=== PATIENT | male | born 1965 | race Caucasian/White ===

== ENCOUNTER → 2018-02-19 | Outpatient (CLI) | payer OTHER ==
--- NOTE | 2018-02-19 15:16 | PCVCIMAG ---
APPROVED REPORT Study performed: 02/19/2018 13:01:25 EXAM: Comprehensive 2D, Doppler, and color-flow Echocardiogram Patient Location: Echo lab Status: routine BSA: 2.28 HR: 56 bpmBP: 90/60 mmHg Rhythm: NSR Other Information Study Quality: Adequate Indications Atrial Fibrillation Hypertension/HDD Hx of non-ischemic cardiomyopathy. 2D Dimensions RVDd: 31.93 mmLVEF(%): 77.21 (>50%) IVSd: 11.66 (7-11mm)LVOT Diam: 23.11 (18-24mm) LVDd: 35.01 mm PWd: 12.83 (7-11mm)Ascending Ao: 33.41 (22-36mm) LVDs: 19.28 (25-40mm) Left Atrium: 45.66 (27-40mm) LV Single Plane 4CH: 68.66 % LV Single Plane 2CH: 69.62 %Joseph's LVEF: 69.14 % Biplane EF: 69.3 % Volumes Left Atrial Volume (Systole) Single Plane 4CH: 70.34 mLSingle Plane 2CH: 58.45 mL LA ESV Index: 32.00 mL/m2 Aortic Valve AoV Peak Rg.: 1.42 m/s AO Peak Gr.: 8.11 mmHgLVOT Max P.63 mmHg LVOT Max V: 1.29 m/s RJ Vmax: 3.79 cm2 Mitral Valve E/A Ratio: 1.4 MV Decel. Time: 283.42 ms MV E Max Rg.: 0.76 m/s MV A Rg.: 0.53 m/s MV PHT: 82.19 ms TDI E/Lateral E': 4.75E/Medial E': 5.43 Medial E' Rg.: 0.14 m/s Lateral E' Rg.: 0.16 m/s Pulmonary Valve PV Peak Gr.: 4.28 mmHg Tricuspid Valve TR Peak Rg.: 2.31 m/s TR Peak Gr.: 21.33 mmHg Left Ventricle The left ventricle is normal size. There is normal LV segmental wall motion. There is normal left ventricular wall thickness. Left ventricular systolic function is normal. The left ventricular ejection fraction is within the normal range. LVEF is 55-60%. The left ventricular diastolic function is normal. Right Ventricle The right ventricle is normal size. The right ventricular systolic function is normal. Atria Left atrium is borderline dilated. The right atrium size is normal. Aortic Valve The aortic valve is normal in structure. No aortic regurgitation is present. There is no aortic valvular stenosis. Mitral Valve The mitral valve is normal in structure. Trace to mild mitral regurgitation. No evidence of mitral valve stenosis. Tricuspid Valve The tricuspid valve is normal in structure. Trace to mild tricuspid regurgitation. Pulmonary artery pressure is 29mmhg. Pulmonic Valve The pulmonary valve is normal in structure. Trace pulmonic regurgitation. Great Vessels The aortic root is normal in size. IVC is normal in size and collapses with >50% inspiration Pericardium There is no pericardial effusion. <Conclusion> The left ventricle is normal size. LVEF is 55-60%. The left ventricular diastolic function is normal. The right ventricle is normal size. Left atrium is borderline dilated. The aortic valve is normal in structure. Trace to mild mitral regurgitation. The tricuspid valve is normal in structure. The aortic root is normal in size. There is no pericardial effusion. The left ventricle is normal size. LVEF is 55-60%. The left ventricular diastolic function is normal. The right ventricle is normal size. Left atrium is borderline dilated. No aortic regurgitation is present. Trace to mild mitral regurgitation. There is no pericardial effusion.
== END | disposition home or self-care (01) ==
LOC: PCVCIMAG 15:09
PROVIDERS: ATTEND Internal Medicine Cardiovascular Disease
DX: I48.91 Unspecified atrial fibrillation (principal); I05.1 Rheumatic mitral insufficiency
CPT/HCPCS: 93306